=== PATIENT | male | born 1990 | race Caucasian/White ===

== ENCOUNTER 2018-01-25 22:08 | Emergency (ER) | payer BC, SELFPAY ==
[2018-01-25 22:09] VITALS: BP 154/103; PULSE 127; RESP 20; TEMP 36.2; O2SAT 100; BMI 20.9
--- NOTE | 2018-01-25 22:33 | ED.VISSUMM ---
- ER Visit Summary Date of Service: 01/25/18 Chief Complaint: Finger laceration History of Present Illness: The patient is a 27 M presenting for evaluation secondary to finger laceration. Patient was at work, he states that he cut his right small and ring digits on a piece of glass in the sink. Tetanus status is less than 5 years. Patient states that bleeding was controlled with pressure. He denies any foreign body sensation, and denies that there was any missing broken glass. Physical Examination: Physical exam unremarkable except for examination of the hand. Right hand exam shows on the pad of the small digit a 1 cm well approximating laceration that is vertically oriented. Normal range of motion of the fingers normal capillary refill normal sensation. On the ring finger there is a similarly normal neurovascular exam and 1/2 cm laceration going from the ulnar corner of the nail down across the tip of the finger. This also is well approximated. Test Results: None indicated Emergency Department Course and Treatment: Patient presented with finger lacerations. There is no concern for foreign body at this time. Patient's tetanus status is already up-to-date. Patient's wounds are well approximating, I do not believe that they necessarily require suture repair. The patient had already irrigated these under tap water, and they appear clean and I do not believe that further cleaning her debridement is necessary. These were closed with Dermabond and the patient was placed in a AlumaFoam splint. He was recommended to leave this on for at least 5 days to ensure wound healing. Patient was discharged. Disposition: Discharge Impression: 1. 1 cm right small digit laceration 2. At 0.5 cm right ring finger laceration 3. Laceration repair with tissue adhesive This note was generated with [employer] dictation software. It may contain incorrect words, spelling, and punctuation that were not noted in review of the chart prior to signing ED Disposition - Plan for ED Patient: Disposition: Home or Assisted Living Chief Complaint: Laceration Diagnosis: Finger laceration Instructions: ED Laceration Ext Skin Glue Additional Instructions: Followup as needed for a wound check Wear your splint 27/11 except when bathing for the next 5 days
[2018-01-25 22:54] VITALS: RESP 18
== END 2018-01-25 22:55 | disposition home or self-care (01) ==
LOC: ED 22:40
PROVIDERS: Emergency Provider Emergency Medicine
DX: S61.216A Laceration without foreign body of right little finger without damage to nail, initial encounter (principal); S61.214A Laceration without foreign body of right ring finger without damage to nail, initial encounter; W25.XXXA Contact with sharp glass, initial encounter; Y93.89 Activity, other specified; Y92.89 Other specified places as the place of occurrence of the external cause; Y99.0 Civilian activity done for income or pay
CPT/HCPCS: 12001; 99283

== ENCOUNTER 2018-04-21 20:29 | Emergency (ER) | payer BC, SELFPAY ==
[2018-04-21 20:30] VITALS: BP 142/78; PULSE 78; RESP 14; TEMP 36.5; O2SAT 98; BMI 21.4
--- NOTE | 2018-04-21 23:00 | RAD_ITS ---
STUDY: X-RAY - SOFT TISSUE NECK REASON FOR EXAM: Male, 27 years old. Foreign body sensation TECHNIQUE: 2 view(s) of the neck were obtained. COMPARISON: None. FINDINGS: Normal visualized nasopharynx, oropharynx, hypopharynx. 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 Normal epiglottis. Normal visualized subglottic tracheal air column. Normal prevertebral soft tissue structures. Normal visualized osseous structures. The soft tissue structures are unremarkable. 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 There are no radiodense foreign bodies noted. Electronically Signed: Jon Dash MD at 23:14 EDT , Service support ,
--- NOTE | 2018-04-21 23:40 | ED.VISSUMM ---
- ER Visit Summary Date of Service: 04/21/18 Chief Complaint: [Foreign body sensation in throat] History of Present Illness: The patient is a 27 M [since the emergency department with sensation of foreign body stuck in his throat. Patient states the symptoms started 3 or 4 days ago. Patient states that eating actually makes the discomfort go away for about 15 minutes or so. Patient typically in the morning when he wakes up does not feel it at all but then throughout the day he starts thinking about things and develops more discomfort. Patient describes it as feeling like a there is a pill stuck in his throat however he did not take any pills before the symptoms started. Denies any heartburn symptoms.] Patient is concerned and wants to make sure there is not something serious causing his symptoms. He does admit that he is quite anxious at times. Physical Examination: [HEENT-PERRLA, EOMI. Cranial nerves II through XII grossly intact. TMs clear. Mucous membranes moist. No adenopathy. Thyroid does not appear enlarged and no masses palpated on it. Pharynx not erythematous. Uvula midline. No trismus. No adenopathy. Cardiovascular-regular rate and rhythm without murmur or ectopy Lungs-clear to auscultation, chest wall stable without crepitus or subcu emphysema Abdomen-normoactive bowel sounds, soft, nontender, no rebound or rigidity, no peritoneal signs. Extremities-intact ?4, normal range of motion, normal pulses, atraumatic] Test Results: [Soft tissue x-rays of the neck obtained were unremarkable.] Emergency Department Course and Treatment: [Patient will be dispensed Ativan for home as he is currently driving therefore will not be given Ativan here.] Treatment Plan: [I suspect patient's symptomatology may be related to anxiety and I suspect he may have globus hystericus. Patient however will be given referral to ENT if symptoms persist as he may need to have potentially direct visualization performed.] Disposition: [Discharged home in stable condition] Impression: [Foreign body sensation-throat] This note was generated with [employer] dictation software. It may contain incorrect words, spelling, and punctuation that were not noted in review of the chart prior to signing ED Disposition - Plan for ED Patient: Chief Complaint: Sore Throat Referrals: Care Physician,No Primary [Primary Care Provider] -
--- NOTE | 2018-04-21 23:44 | ED.DEP ---
ED Disposition - Plan for ED Patient: Chief Complaint: Sore Throat Instructions: ED Stress React Prescriptions: Lorazepam [Ativan] 1 mg PO TID PRN #10 tab PRN Reason: Anxiety Referrals: Care Physician,No Primary [Primary Care Provider] - Francis Nunez MD [STAFF PHYSICIAN] - 3-5 Days
[2018-04-21 23:53] VITALS: PULSE 59; RESP 14; O2SAT 98
== END 2018-04-21 23:56 | disposition home or self-care (01) ==
LOC: ED 22:02
PROVIDERS: Emergency Provider Emergency Medicine
DX: R09.89 Other specified symptoms and signs involving the circulatory and respiratory systems (principal)
CPT/HCPCS: 70360; 99282

== ENCOUNTER 2018-11-20 12:22 | Emergency (ER) | payer SELFPAY ==
[2018-11-20 12:24] VITALS: BP 140/90; PULSE 70; RESP 16; TEMP 36.7; O2SAT 99; BMI 22.8
--- NOTE | 2018-11-20 12:32 | RAD_ITS ---
STUDY: X-RAY - SOFT TISSUE NECK REASON FOR EXAM: Male, 28 years old. P PAIN Reason for Procedure (Pain). lt side neck pain x few months. TECHNIQUE: 2 view(s) of the neck were obtained. COMPARISON: None. FINDINGS: Normal visualized nasopharynx, oropharynx, hypopharynx. Normal epiglottis. Normal visualized subglottic tracheal air column. Normal prevertebral soft tissue structures. The soft tissue structures are unremarkable. RAD/Neck for Soft Tissue IMPRESSION: Normal x-ray soft tissue neck. Electronically Signed: Song Mckeon MD at 13:16 EDT Tel , Service support ,
--- NOTE | 2018-11-20 12:36 | ED.DCSUM_ITS ---
- ER Visit Summary Date of Service: 11/20/18 Chief Complaint: Throat swelling History of Present Illness: The patient is a 28 M the patient presents to the emergency department with months of feeling abnormal sensation of his anterior throat. He states mostly in the left side. He denies any trouble speaking or swallowing. He denies any fevers or chills. He denies any weight loss. He states it just feels like his anterior neck is more full. He went to urgent care who referred him here. He has no history of thyroid disease. He denies night sweats. He said no other symptoms. Physical Examination: Vital signs reviewed General: Well-nourished, well-developed Head: Normocephalic, atraumatic Eyes: Pupils equal and reactive, extraocular muscles intact Neck, supple, no lymphadenopathy Heart: Regular rate and rhythm Respiratory: No distress, clear bilaterally Abdomen: Soft, nontender, nondistended, no peritoneal signs Back: Nontender Extremities: Nontender, no edema, no cords Skin: Normal color no rash Neuro: Alert and oriented, no focal or lateralizing deficits Test Results: [] Emergency Department Course and Treatment: I do not feel any abnormalities with palpation of the throat. There is no significant thyromegaly. There is no lymphadenopathy. His oropharynx is widely patent. Lateral soft tissue neck was obtained. This is unremarkable. I am going to refer the patient to primary care as he may need a thyroid ultrasound given the sensation in this is right over the thyroid area. I do feel that he is safe for outpatient therapy. He is comfortable with this plan of care and will be discharged home. Treatment Plan: [] Disposition: Discharge Impression: Reported fullness of throat This note was generated with [employer] dictation software. It may contain incorrect words, spelling, and punctuation that were not noted in review of the chart prior to signing ED Disposition - Plan for ED Patient: Instructions: ED Cervical Adenitis No Abx Tx Referrals: Elvin Tomlin DO [NON CLINICAL AFFILIATE] -
== END 2018-11-20 13:36 | disposition home or self-care (01) ==
PROVIDERS: Emergency Provider Emergency Medicine
DX: R09.89 Other specified symptoms and signs involving the circulatory and respiratory systems (principal)
CPT/HCPCS: 70360; 99283

== ENCOUNTER 2019-09-06 21:23 | Emergency (ER) | payer OTHER, SELFPAY ==
[2019-09-06 21:24] VITALS: BP 167/103; PULSE 116; RESP 16; TEMP 36.9; O2SAT 100; BMI 24.3
--- NOTE | 2019-09-06 21:55 | ED.VISSUMM ---
- ER Visit Summary Date of Service: 09/06/19 Chief Complaint: Bumps on the back of my throat History of Present Illness: The patient is a 29 M no significant past medical or surgical history. Patient states that he has had bumps on the back of his throat for maybe up to the last several weeks. Denies any significant pain. No trouble swallowing. No trouble breathing. Denies any bleeding. He had his tonsils taken out as a child. Denies any other complaints. No fever or chills. Physical Examination: Well-appearing young male. He is anxious. Vital signs are stable he is afebrile. He does not look septic or toxic. He is in no distress. H EENT exam posterior pharynx he has what appears to be abscess ulcers on the left posterior pharynx and also on his uvula. There is no bleeding. There is no peritonsillar abscess. His tonsils have been removed. No trouble swallowing or breathing no stridor or drooling. Tongue, cheek mucosa and floor of his mouth are unremarkable. Neck nontender. No lymphadenopathy. Lungs clear to auscultation bilaterally. Heart regular rhythm no murmur. Abdomen soft nontender. Patient is moving all 4 extremities. Skin no rashes. Neurologically is awake alert. Test Results: None Emergency Department Course and Treatment: Exam consistent with abscess ulcers. Treatment Plan: Glyoxide rinse to his mouth 3-5 times a day. Follow-up if not improving. Disposition: Discharge Impression: Abscess ulcers in the posterior pharynx This note was generated with [facility] dictation software. It may contain incorrect words, spelling, and punctuation that were not noted in review of the chart prior to signing ED Disposition - Plan for ED Patient: Referrals: Care Physician,No Primary [Primary Care Provider] -
--- NOTE | 2019-09-06 21:58 | ED.DEP ---
ED Disposition - Plan for ED Patient: Disposition: Home or Assisted Living Referrals: Saurav Mercado MD [STAFF PHYSICIAN] - 10-14 Days if not better Additional Instructions: Gly-Oxide mouth rinse. 3-5 times a day. The spots on the back your throat should resolve within a week.
[2019-09-06 22:11] VITALS: RESP 16
== END 2019-09-06 22:11 | disposition home or self-care (01) ==
PROVIDERS: Emergency Provider Emergency Medicine
DX: J39.1 Other abscess of pharynx (principal); J39.2 Other diseases of pharynx
CPT/HCPCS: 99282

== ENCOUNTER 2019-10-19 18:58 | Emergency (ER) | payer OTHER, SELFPAY ==
[2019-10-19 19:00] VITALS: BP 158/120; PULSE 158; RESP 19; TEMP 36.8; O2SAT 100; BMI 24.1
[2019-10-19 19:03] VITALS: BP 160/105; PULSE 126
--- NOTE | 2019-10-19 20:29 | ED.DCSUM_ITS ---
History of Present Illness Chief Complaint: Back Informant: Patient Onset: Weeks Context: Gradual Onset Timing: Waxes and wanes Current Severity: Moderate Maximum Severity: Moderate Narrative: Patient presents with back pain that he first noted 2 weeks ago. He states it initially felt that he had a bite to his left scapula. It became itchy and irritated. A few days later it felt like moved to the right side over the scapular region. Patient states he now has pain that wraps down along the left thoracic paraspinal muscles. Today he had a brief sudden sharp pain that wrapped around his right shoulder and down the right lateral chest. He is also had some occasional pain to the right posterior upper arm. He was seen at urgent care 5 days ago and given Flexeril and prednisone but has not noted much improvement. Past Medical History - Allergies and Home Meds Allergies/Adverse Reactions: Allergies cefaclor [From Ceclor] Allergy (Verified 10/19/19 18:59) Rash Primary Care Physician: Orquidea Bentley NP-C [Primary Care Provider] - 1 Week if not improving Past Medical History: None Smoking Status: Former smoker Review of Systems General: Denies: Chills, Fever Eyes: Denies: Visual changes - bilaterally ENT: Denies: Bilateral ear pain Cardiovascular: Reports: Chest pain Respiratory: Denies: Dyspnea, Cough Gastrointestinal: Denies: Abdominal pain, Nausea, Vomiting, Diarrhea Genitourinary: Denies: Dysuria Musculoskeletal: Denies: Swelling, Extremity Pain Skin: Denies: Rash Neurological: Denies: Headache Hematologic: Denies: Easy bruising Allergy: Denies: Uticaria Physical Exam Vital Signs/Narrative: Vital Signs Temp Pulse Resp BP Pulse Ox 10/19/19 19:03 126 H 160/105 H 10/19/19 19:00 98.2 F 158 H 19 H 158/120 H 100 Inital Vital Signs reviewed: Yes General: Well nourished, Well developed Head: Normocephalic ENT: Moist mucous membranes Neck: Supple Cardiovascular: Regular rate, Regular rhythm Respiratory: No distress, CTA bilaterally Abdomen: Soft, Nontender Back: - - No midline cervical, thoracic, or lumbar tenderness. He has reproducible tenderness in the right mid to upper thoracic paraspinals as well as the left thoracic paraspinal muscles. There is no overlying skin change. Extremities: Nontender Skin: Normal color, No rash Neurological: Alert, Oriented x3, Normal Strength, Normal Sensation Psychological: Normal affect Diagnostic/Tx/Re-eval - Medical Decision Making Patient's pain is reproducible in the paraspinal muscles. It is worsened with movement. I do not believe this represents acute pulmonary or cardiac etiology. He did have brief pain that wrapped around the shoulder and down the right chest, however this matches nerve distribution and I believe he was having paraspinal spasm pinching the upper thoracic nerves. Patient will be given prescriptions for [place], Valium, Naprosyn, and Pepcid. He will stop taking Flexeril. He is to follow-up with his doctor in the next 3 to 5 days. ED Disposition - Plan for ED Patient: Disposition: Home or Assisted Living Diagnosis: Back muscle spasm Instructions: Back Sprain/Strain Prescriptions: Naproxen [Naprosyn] 500 mg PO BID PRN PRN #20 tab PRN Reason: Pain Score 4-10/10 Prescription Printed Hydrocodone Bitart/Apap 5-325 [[place] 5MG-325MG] 1 tab PO Q6H PRN PRN 3 Days #10 tab PRN Reason: Pain Prescription Printed Famotidine [Pepcid] 20 mg PO BID #28 tab Prescription Printed Diazepam [Valium] 5 mg PO Q8 PRN #10 tab PRN Reason: Muscle Spasm Prescription Printed Referrals: Orquidea Bentley NP-Xiomy [Primary Care Provider] - 1 Week if not improving
[2019-10-19 20:58] VITALS: PULSE 81; RESP 16; O2SAT 100
--- NOTE | 2019-10-19 20:59 | ED.RN ---
THIS NURSE REVIEWED D/C INSTRUCTIONS WITH PT. PT VERBALIZED UNDERSTANDING OF INSTRUCTIONS. PT DENIES FURTHER NEEDS OR QUESTIONS AT THIS TIME. PT AMBULATES FROM ROOM ON OWN WITHOUT ASSISTANCE FROM STAFF
== END 2019-10-19 21:00 | disposition home or self-care (01) ==
LOC: ED 20:36
PROVIDERS: Emergency Provider Emergency Medicine; PCP Nurse Practitioner Family
DX: M62.830 Muscle spasm of back (principal); Z87.891 Personal history of nicotine dependence
CPT/HCPCS: 99282

== ENCOUNTER 2020-04-17 19:12 | Emergency (ER) | payer MEDICAID, SELFPAY ==
[2020-01-01 16:42] VITALS: BMI 24.1
[2020-04-17 19:13] VITALS: BP 144/88; PULSE 91; RESP 16; TEMP 36.5; O2SAT 100; BMI 24.1
--- NOTE | 2020-04-17 19:35 | EKG12_ITS ---
Test Reason : CP Blood Pressure : / mmHG Vent. Rate : 066 BPM Atrial Rate : 066 BPM P-R Int : 130 ms QRS Dur : 096 ms QT Int : 372 ms P-R-T Axes : 075 038 050 degrees QTc Int : 389 ms Normal sinus rhythm Normal ECG Confirmed by JUAN HAYDEN, YOLETTE ([id number]), image editor FAREED LARA ([id number]) on 04/21/2020 11:33:30 AM Referred By: MARIA ESTHER/PAULA Confirmed By:YOLETTE MARTNIEZ MD
--- NOTE | 2020-04-17 19:36 | ED.VIS.GEN ---
History of Present Illness Chief Complaint: Chest Pain Informant: Patient Onset: Days Maximum Severity: Mild Narrative: Patient complains of a sharp intermittent right-sided chest pain is been gone for 5 days on and off nothing triggers it nothing makes it better it is paroxysmal, he has no history of AL PE or DVT he has had no cough no fever he works lifting boxes he did not injure his body in any way he has no abdominal pain bowel bladder habits are normal he does not smoke illicit drugs no history of hypertension diabetes the pain can last for seconds to minutes it resolves when he is not having pain he has normal health, no coronavirus exposures or symptoms Past Medical History - Allergies and Home Meds Allergies/Adverse Reactions: Allergies cefaclor [From Ceclor] Allergy (Verified 04/17/20 19:15) Rash Primary Care Physician: Orquidea Bentley NP, [employer] MEMBER-C [Primary Care Provider] - Past Medical History: None Smoking Status: Former smoker Review of Systems General: Denies: Chills, Fever, Sweats Eyes: Denies: Visual changes - bilaterally, Diplopia ENT: Denies: Rhinorrhea, Sore throat Cardiovascular: Reports: Chest pain. Denies: Palpitations Respiratory: Denies: Dyspnea, Cough, Dyspnea on exertion Gastrointestinal: Denies: Abdominal pain, Nausea, Vomiting, Diarrhea, Melena, Hematochezia Genitourinary: Denies: Dysuria, Hematuria, Frequency Musculoskeletal: Denies: Back pain, Extremity Pain Skin: Denies: Rash, Wounds Neurological: Denies: Headache, Weakness, Numbness Physical Exam Vital Signs/Narrative: Vital Signs Temp Pulse Resp BP Pulse Ox 04/17/20 19:13 97.7 F L 91 16 144/88 H 100 General: Well nourished, Well developed, No Acute Distress Head: Normocephalic, Atraumatic Eyes: Perrl, EOMI ENT: Moist mucous membranes, No rhinorrhea Neck: Supple, Nontender Cardiovascular: Regular rate, Regular rhythm, No murmurs Respiratory: No distress, CTA bilaterally, Chest nontender Abdomen: Soft, Nontender, Nondistended, Normal bowel sounds Back: Nontender, Normal Inspection Extremities: Nontender, No edema Skin: Normal color, No rash Neurological: Alert, Oriented x3, Cranial nerves II-XII grossly intact, Normal Strength, Normal Sensation Psychological: Normal affect, Normal Mood Diagnostic/Tx/Re-eval - Medical Decision Making Patient's vital signs are unremarkable, the EKG shows a sinus rhythm rate 66 no acute injury pattern intervals within normal range Pain his pain is very paroxysmal sharp and stabbing he has no PE risk factors no cardiovascular risk factors he has had this on and off for 5 days given all the above ED screening evaluation Patient's ED screening evaluation labs are unremarkable he is resting comfortably bed discussed all the above with him discussed the differential further management options he wants to go home he will follow-up with outpatient providers and return for change in symptoms Home stable Final impression sharp stabbing right-sided chest pain etiology unclear ED Disposition - Plan for ED Patient: Diagnosis: Chest pain Instructions: ED Chest Pain Atypical Unkn Cause Prescriptions: Naproxen [Naprosyn] 500 mg PO BID #20 tab Prescription Printed Referrals: Orquidea Bentley NP, [employer] MEMBER-C [Primary Care Provider] -
[2020-04-17] MEDS: Aspirin 81 MG TAB.CHEW 324 MG PO (19:39)
[2020-04-17 19:46] LABS: Absolute Lymphocyte Count 2.06 X10^3/uL (0.83-4.51); Absolute Neutrophil Count 3.7 X10^3/uL (2.0-7.7); Basophil# 0.03 X10^3/uL; Basophil% 0.4 % (0-1); Eosinophil# 0.16 X10^3/uL; Eosinophils% 2.4 % (0-5); Hemoglobin 14.2 g/dL (13.0-16.5); Lymphocyte # 2.06 X10^3/ul (4.0); Lymphocyte % 30.7 % (19-41); Mean Corp Hgb Conc 33.8 g/dL (32-36); Mean Corpuscular Hgb 28.7 pg (27.0-32.0); Mean Platelet Vol. 11.2 fl (6.2-12.0); Monocyte% 10.4 % (0-10); NRBC Flagged by Analyzer 0 % (0-5); Neutrophil # 3.73 X10^3/uL (2.7-7.7); Neutrophil % 55.8 % (47-70); Platelet Count 189 K/mm3 (150-450); RBC Distribution Width CV 12.7 % (11.6-14.6); Red Blood Count 4.94 M/mm3 (4.6-6.2); White Blood Count 6.7 K/mm3 (4.4-11.0)
[2020-04-17] MEDS: Ondansetron 4 MG/2 ML Vial IV (19:47)
[2020-04-17] MEDS: 0.9% Normal Saline 1,000 ML 150 ML IV (19:47)
[2020-04-17] MEDS: Morphine 4 MG/ML Syringe IV (19:48)
--- NOTE | 2020-04-17 20:01 | RAD_ITS ---
STUDY: X-RAY CHEST REASON FOR EXAM: Male, 29 years old. chest pain, pressure right anterior chest TECHNIQUE: Single frontal view of the chest. COMPARISON: 08/26/2010 FINDINGS: The lungs are clear and expanded. There is no demonstrated pleural abnormality. Normal size heart. Normal mediastinum and erik. Normal visualized pulmonary arteries. Normal visualized aortic arch and descending thoracic aorta. Normal visualized thoracic spine. Normal visualized ribs, clavicles, and shoulders. There is no demonstrated abnormality of the visualized soft tissue structures of the upper abdomen. RAD/Chest 1 View (Portable) IMPRESSION: Normal x-ray examination of the chest. Electronically Signed: Sourav Herron MD at 20:41 EDT , Service support ,
[2020-04-17 20:05] LABS: Anion Gap 5 (5-15); BUN 14 mg/dL (7-18); Calcium,Total 9.2 mg/dL (8.5-10.1); Chloride 107 mmol/L (98-107); Creatinine, Serum 0.94 mg/dL (0.70-1.30); EST Glomerular Filtration Rate 102 mL/min (>60); Est Glom Filt Rate - Afr Amer 123 mL/min (>60); Estimated Creatinine Clearance 109.39 ml/min; Glucose 107 mg/dL (74-106); Potassium 3.7 mmol/L (3.5-5.1); Sodium Level 140 mmol/L (136-145)
[2020-04-17 20:45] VITALS: BP 135/85; PULSE 63; RESP 18; O2SAT 97
== END 2020-04-17 21:03 | disposition home or self-care (01) ==
PROVIDERS: Emergency Provider Emergency Medicine; PCP Nurse Practitioner Family
DX: R07.9 Chest pain, unspecified (principal); Z87.891 Personal history of nicotine dependence
CPT/HCPCS: 71045; 80048; 84484; 85025; 93005; 96361; 96374; 96375; 99285; J7030; A4216; J2405

== ENCOUNTER 2022-06-17 22:54 | Emergency (ER) | payer MEDICAID, SELFPAY ==
[2022-06-17 22:55] VITALS: BP 156/92; PULSE 81; RESP 14; TEMP 36.8; O2SAT 100; BMI 21.8
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
--- NOTE | 2022-06-17 23:44 | EDS_ITS ---
HPI History of Present Illness Chief Complaint: Other, Pain/Inj Informant: patient Narrative Narrative: Patient complains of pain in the mid and just left side of his neck. He felt fine until his 3-year-old daughter jumped up out of bed and hit him in his neck. He states it is just on the left side of his larynx. It is a little sore when he swallows but he is not having difficulty. He can eat and drink. No trouble breathing. No numbness tingling weakness or any neurologic symptoms. No headache. The symptoms started about an hour ago. They have not worsened. They have not changed. He is currently on no medications. No history of prior neck trauma or surgeries. None he states its worse if he swallows or he presses on the area. No other injury. PFSH PFSH Home Medications Prednisone See Taper PO DAILY 10/19/19 [History Last Taken 10/19/19] cyclobenzaprine 10 mg tablet 10 mg PO TID PRN PRN Muscle Spasm 10/19/19 [History Last Taken 10/19/19] diazepam 5 mg tablet 5 mg PO Q8 PRN Muscle Spasm #10 tabs 10/19/19 [Rx Last Taken Unknown] famotidine 20 mg tablet 20 mg PO BID #28 tabs 10/19/19 [Rx Last Taken Unknown] naproxen 500 mg tablet 500 mg PO BID PRN PRN Pain Score 4-10/10 #20 tabs 10/19/19 [Rx Last Taken Unknown] cyclobenzaprine 10 mg tablet 10 mg PO HS PRN muscle spasm #20 tabs 01/01/20 [Rx Last Taken Unknown] prednisone 10 mg tablet 10 mg PO DAILY #45 tabs 01/01/20 [Rx Last Taken Unknown] naproxen 500 mg tablet 500 mg PO BID #20 tabs 04/17/20 [Rx Last Taken Unknown] Allergy/AdvReac Type Severity Reaction Status Date / Time cefaclor [From [facility]] Allergy Rash Verified 06/17/22 22:55 Social History Smoking Status: Former smoker ROS ROS ED Constitutional Constitutional ED: Denies fever(s) or sweats Eyes Eyes: Denies blurry vision or change in vision ENT ENT ED: Reports other Details: See HPI ; Denies ear pain or rhinorrhea Cardiovascular Cardiovascular: Denies chest pain, palpitations or paroxysmal nocturnal dyspnea Respiratory/Chest Respiratory/Chest: Denies cough, dyspnea, dyspnea on exertion or paroxysmal nocturnal dyspnea Gastrointestinal Gastrointestinal: Denies nausea or vomiting Musculoskeletal Musculoskeletal: Reports neck pain and other Details: Anterior/anterior left neck pain as in history of present illness. Integumentary Denies abscess or Abrasions Neurologic Neurologic: Denies headache(s), paresthesias or weakness Hematologic/Lymphatic Hematologic/Lymphatic: Denies easy bleeding or easy bruising Allergic/Immunologic Allergic/Immunologic ED: Denies mouth swelling, tongue swelling or urticaria EXAM Physical Exam Const Vital Signs: 06/17/22 22:55 Temperature 98.2 F Temperature Source Temporal Pulse Rate 81 Respiratory Rate 14 Blood Pressure 156/92 H Blood Pressure Mean 113 Pulse Ox 100 Oxygen Delivery Method Room Air Positive well nourished and well developed Constitutional Narrative: Patient sitting comfortably on bed. He carries on a conversation normally and easily. General Appearance ED: well developed and NAD HEENT HEENT Narrative: No swelling. No erythema. No facial or jaw tenderness. Posterior pharynx looks normal. Handle secretions well. Voice is normal. Eyes PERRL and EOMs intact bilaterally Neck Neck Narrative: Patient has some slight tenderness to the left side of his larynx. There is no carotid bruit. No tenderness over near the carotid. There is no subcutaneous air on exam. There is no swelling. I see no bruising or abrasion at this point. He is able to swallow well. Chest Wall inspection of chest normal and palpation of chest normal Chest Narrative: No subcutaneous air Resp normal respiratory effort and clear to auscultation bilaterally Cardio regular rhythm Neuro oriented x3 Neuro Narrative: No numbness tingling weakness gait instability. Sensorium / Orientation: alert Psych mental status grossly normal Skin no rashes or lesions noted and no wounds MDM MDM MDM Narrative Medical decision making narrative: Imaging shows no subcutaneous air or sign of laryngeal injury. I think patient can go home. Ice rest Tylenol or Motrin. If he gets swelling, any neurologic symptom, trouble swallowing or other concerns he should return. Radiography Diagnostic Testing: Clinical Impression(s) from Imaging Studies Soft Tissue Neck CT 06/17/22 23:37 IMPRESSION: Normal unenhanced CT examination of the soft tissues of the neck. Electronically Signed: Arabella Vincent MD at 0:19 EST , CT scan of the neck shows no acute process. Discharge Plan Triage Chief Complaint: Other, Pain/Inj ED Provider: Edgardo Kwong Dx/Rx/DC Orders Clinical Impression: Neck contusion Instructions: ED Soft Tissue Contusion Prescriptions: No Action cyclobenzaprine 10 mg tablet 10 mg PO HS PRN (Reason: muscle spasm) Qty: 20 0RF prednisone 10 mg tablet 10 mg PO DAILY Qty: 45 0RF Rx Instructions: 5 tabs daily x3 days,then 4 tabs daily x3 days,then 3 tabs daily x3 days,then 2 tabs daily x3 days,then 1 tab daily x3 days cyclobenzaprine 10 MG tablet 10 mg PO TID PRN PRN (Reason: Muscle Spasm) Prednisone See Taper PO DAILY Taper: Prednisone Taper 40 tab DAILY@0800 for 3 Days and 0 Hour 30 tab DAILY@0800 for 3 Days and 0 Hour 20 tab DAILY@0800 for 3 Days and 0 Hour 10 tab DAILY@0800 for 3 Days and 0 Hour naproxen 500 MG tablet 500 mg PO BID PRN PRN (Reason: Pain Score 4-10/10) Qty: 20 0RF diazepam 5 MG tablet 5 mg PO Q8 PRN (Reason: Muscle Spasm) Qty: 10 0RF famotidine 20 MG tablet 20 mg PO BID Qty: 28 0RF naproxen 500 MG tablet 500 mg PO BID Qty: 20 0RF Primary Care Provider: Orquidea Bentley NP Referrals: Orquidea Bentley NP, CHARGE LPN-C [Primary Care Provider] - 1 Week if not improving Disposition Disposition: Home, Self Care
[2022-06-18 00:26] VITALS: BP 156/92; PULSE 81; RESP 14; O2SAT 100
== END 2022-06-18 00:45 | disposition home or self-care (01) ==
PROVIDERS: Emergency Provider Emergency Medicine; PCP Nurse Practitioner Family; Visit Provider Emergency Medicine
DX: S10.93XA Contusion of unspecified part of neck, initial encounter (principal); Z87.891 Personal history of nicotine dependence; W50.0XXA Accidental hit or strike by another person, initial encounter
CPT/HCPCS: 70490; 99282